=== PATIENT | male | born 1930 | race Caucasian/White ===

== ENCOUNTER 2016-06-16 17:23 | Emergency (ER) | payer MEDICARE, BC ==
--- NOTE | 2016-06-16 18:43 | EDM.PDOC ---
ED HPI RENAL/ - General Chief Complaint: Genitourinary Problem Stated Complaint: Urinary burning, difficult passing Time Seen by Provider: 06/16/16 18:34 Source of Information: Reports: Patient History Limitations: Reports: No limitations - History of Present Illness INITIAL COMMENTS - FREE TEXT/NARRATIVE: The patient presents with complaint of dysuria that has worsened over the last 3 days. He has a history of BPH and had recently switched from terazosin to finasteride about 1 week ago and started having increased urinary retention and difficulty. He quit finasteride about 3 days ago as it "was not helping". He said he had plans to restart terazosin tonight. He denies fever, chills, bodyaches, confusion, disorientation, or other symptoms or complaints. - Related Data Allergies/ADRs: Allergies Allergy/AdvReac Type Severity Reaction Status Date / Time No Known Allergies Allergy Verified 02/12/16 15:16 Home Meds: Home Meds Albuterol Sulfate [Ventolin Hfa] 2 puff INH ASDIRECTED PRN 02/12/16 [History] Hydrochlorothiazide 1 tab PO DAILY 02/12/16 [History] LORazepam [LORazepam] 1 tab PO ASDIRECTED PRN 02/12/16 [History] Terazosin [Hytrin] 1 cap PO BEDTIME 02/12/16 [History] amLODIPine [Norvasc] 1 tab PO DAILY 02/12/16 [History] metroNIDAZOLE [Metrogel] 1 applic TOP BID PRN 02/12/16 [History] Acetaminophen 650 mg PO Q4HR PRN 06/16/16 [History] Aspirin 81 mg PO DAILY 06/16/16 [History] Ciprofloxacin [Ciprofloxacin HCl] 500 mg PO BID #10 tablet 06/16/16 [Rx] Metoprolol Tartrate [Lopressor] 12.5 mg PO BID 06/16/16 [History] Nitroglycerin [Nitrostat] 1 tab SL ASDIRECTED 06/16/16 [History] Ticagrelor [Brilinta] 90 mg PO BID 06/16/16 [History] Ubidecarenone [Co Q-10] 1 cap PO BEDTIME 06/16/16 [History] Past Medical History HEENT History: Reports: Impaired vision Cardiovascular History: Reports: High cholesterol, Hypertension, Stents Gastrointestinal History: Reports: GERD Genitourinary History: Reports: BPH Musculoskeletal History: Reports: Fracture Other Musculoskeletal History: Left arm fx in 1937 Psychiatric History: Reports: Anxiety Endocrine/Metabolic History: Reports: Other (see below) Other Endocrine/Metabolic History: Thyromegaly Oncologic (Cancer) History: Reports: Other (see below) Other Oncologic History: 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 - Past Surgical History HEENT Surgical History: Reports: Cataract surgery, Oral surgery, Tonsillectomy Cardiovascular Surgical History: Reports: Carotid stents GI Surgical History: Reports: Colonoscopy, EGD Musculoskeletal Surgical History: Reports: Other (see below) Other Musculoskeletal Surgeries/Procedures:: Knee surgery Social & Family History - Tobacco Use Smoking Status *Q: Unknown Ever Smoked ED ROS GENERAL - Review of Systems Review Of Systems: ROS reveals no pertinent complaints other than HPI. ED EXAM, RENAL/ - Physical Exam Exam: See Below Exam Limited By: No limitations General Appearance: alert, WD/WN, no apparent distress Eye Exam: bilateral eye: EOMI, normal fundi, normal inspection, PERRL Ears: normal external exam, normal canal, hearing grossly normal, normal TMs Nose: normal inspection, normal mucosa, no blood Throat/Mouth: Normal inspection, Normal lips, Normal teeth, Normal gums, Normal oropharynx, Normal voice, No airway compromise Head: atraumatic, normocephalic Neck: normal inspection, supple, non-tender, full range of motion, other (No nuchal rigidity.) Respiratory/Chest: no respiratory distress, lungs clear, normal breath sounds, no accessory muscle use, chest non-tender Cardiovascular: normal peripheral pulses, regular rate, rhythm, no edema, no gallop, no murmur, no rub GI/Abdominal: normal bowel sounds, soft, non tender, no organomegaly, no distention Back Exam: normal inspection, full range of motion. No: CVA tenderness (L), CVA tenderness (R), paraspinal tenderness, vertebral tenderness Extremities: normal inspection, normal range of motion, non-tender, no pedal edema, normal capillary refill. No: Elen's Sign Neurological: alert, oriented, CN II-XII intact, normal cognition, normal gait, normal reflexes, no motor/sensory deficits Psychiatric: normal affect, normal mood Skin Exam: Warm, Dry, Intact, Normal color, No rash Lymphatic: no adenopathy Course - Vital Signs Last Recorded V/S: Last Vital Signs Temp 36.9 C 06/16/16 17:24 Pulse 56 L 06/16/16 17:24 Resp 18 06/16/16 17:24 BP Pulse Ox 95 06/16/16 17:24 - Orders/Labs/Meds Orders: Active Orders 24 hr Category Date Time Status CULTURE URINE [RM] Stat Lab 06/16/16 17:39 Received Labs: Laboratory Tests 06/16/16 Range/Units 17:39 Specimen Type Urincc Urine Color Yellow Urine Appearance Clear Urine pH 6.5 (5.0-9.0) Ur Specific [place] 1.020 (1.005-1.030) Urine Protein Negative (NEGATIVE) mg/dL Urine Glucose (UA) Negative (NEGATIVE) mg/dL Urine Ketones Negative (NEGATIVE) mg/dL Urine Occult Blood Trace-intact H (NEGATIVE) Urine Nitrite Negative (NEGATIVE) Urine Bilirubin Negative (NEGATIVE) Urine Urobilinogen 2.0 H (0.2-1.0) E.U./dL Ur Leukocyte Esterase Negative (NEGATIVE) Urine RBC 0-5 /HPF Urine WBC 0-5 /HPF Ur Epithelial Cells Few /LPF Urine Bacteria Few (NONE TO FEW) /HPF Departure - Departure Time of Disposition: 18:38 Disposition: Home, Self-Care 01 Clinical Impression: Dysuria, Bacteriuria with pyuria BPH (benign prostatic hypertrophy) Qualifiers: Prostatic enlargement morphology: unspecified morphology Lower urinary tract symptom presence: symptoms present Qualified Code(s): N40.1 - Benign prostatic hyperplasia with lower urinary tract symptoms Prescriptions: Ciprofloxacin [Ciprofloxacin HCl] 500 mg PO BID #10 tablet Instructions: Urinary Tract Infection, Adult Referrals: Duc Callejas NP [Primary Care Provider] - Forms: ED Department Discharge Additional Instructions: 1. Urine culture sent. 2. Instructed to discontinue finasteride and restart terazosin as previously prescribed. 3. Prescription for Ciprofloxacin 500 mg PO BID, 5 days, 0 refills. 4. OTC acetaminophen 325-650 mg every 6 hours as needed for fever or discomfort. 5. Increase fluid intake. 6. Get plenty of rest. 7. Followup with PCP in 3-5 days or sooner if symptoms worsen. 8. Return to ER with fever > 101 F not responsive to acetaminophen or ibuprofen , inability to urinate, blood in urine, confusion or other mental status changes , or other emergent concerns. - My Orders Last 24 Hours: My Active Orders 06/16/16 17:39 CULTURE URINE [RM] Stat - Assessment/Plan Last 24 Hours: My Active Orders 06/16/16 17:39 CULTURE URINE [RM] Stat Assessment:: Bacteriuria with pyuria and dysuria Chronic BPH Plan: 1. Urine culture sent. 2. Instructed to discontinue finasteride and restart terazosin as previously prescribed. 3. Prescription for Ciprofloxacin 500 mg PO BID, 5 days, 0 refills. 4. OTC acetaminophen 325-650 mg every 6 hours as needed for fever or discomfort. 5. Increase fluid intake. 6. Get plenty of rest. 7. Followup with PCP in 3-5 days or sooner if symptoms worsen. 8. Return to ER with fever > 101 F not responsive to acetaminophen or ibuprofen , inability to urinate, blood in urine, confusion or other mental status changes , or other emergent concerns.
== END 2016-06-16 18:55 | disposition home or self-care (01) ==
LOC: LL.ED 17:23
DX: N40.1 Benign prostatic hyperplasia with lower urinary tract symptoms (principal); N39.0 Urinary tract infection, site not specified; I10 Essential (primary) hypertension; E78.00 Pure hypercholesterolemia, unspecified; K21.9 Gastro-esophageal reflux disease without esophagitis; F41.9 Anxiety disorder, unspecified; Z79.899 Other long term (current) drug therapy; Z98.49 Cataract extraction status, unspecified eye; Z79.82 Long term (current) use of aspirin
CPT/HCPCS: 81001; 87086; 99283

== ENCOUNTER 2017-11-22 11:55 | Emergency (ER) | payer MEDICARE, BC ==
[2017-11-22] MEDS ORDERED: Sodium Chloride 0.9% 10 ML Syringe FLUSH PRN (12:22)
--- NOTE | 2017-11-22 12:24 | EDM.PDOC ---
ED HPI GENERAL MEDICAL PROBLEM - General Chief Complaint: Cardiovascular Problem Stated Complaint: A-fib RVR Time Seen by Provider: 11/22/17 12:10 Source of Information: Reports: Patient History Limitations: Reports: No Limitations - History of Present Illness INITIAL COMMENTS - FREE TEXT/NARRATIVE: Patient referred to ER from clinic after he was noted to be in afib with RVR. Denies history of previous diagnosis of Afib. Does have history of CAD and had stents placed at [facility] around a year and a half ago. Came to clinic today because he felt "woozy". Complains of feeling low energy for "some time" Also complains of long standing nocturnal SOB sensation when laying in bed. Denies chest pain. No recent med changes or other health changes. Baseline sensation of SOB is unchanged today. No diaphoresis/other new pain/GI//HEENT/ Neuro changes. Denies vertigo when he feels woozy. - Related Data Allergies Allergy/AdvReac Type Severity Reaction Status Date / Time No Known Allergies Allergy Verified 11/22/17 12:08 Home Meds: Home Meds LORazepam 1 tab PO ASDIRECTED PRN 02/12/16 [History] amLODIPine [Norvasc] 5 mg PO DAILY 02/12/16 [History] Aspirin 81 mg PO DAILY 06/16/16 [History] Metoprolol Tartrate [Lopressor] 12.5 mg PO BID 06/16/16 [History] Nitroglycerin [Nitrostat] 1 tab SL ASDIRECTED 06/16/16 [History] Ubidecarenone [Co Q-10] 1 cap PO BEDTIME 06/16/16 [History] Albuterol [Proventil HFA] 200 puff INH TID PRN 11/22/17 [History] Albuterol [Ventolin HFA] 2 puff INH QID PRN 11/22/17 [History] Budesonide/Formoterol [Symbicort 160-4.5 MCG] 2 puff INH BID 11/22/17 [History] Furosemide 40 mg PO DAILY 11/22/17 [History] Rosuvastatin Calcium 10 mg PO BEDTIME 11/22/17 [History] Terazosin HCl [Terazosin] 10 mg PO BEDTIME 11/22/17 [History] Past Medical History HEENT History: Reports: Impaired Vision Cardiovascular History: Reports: High Cholesterol, Hypertension, Stents Gastrointestinal History: Reports: GERD Genitourinary History: Reports: BPH Musculoskeletal History: Reports: Fracture Other Musculoskeletal History: Left arm fx in 1937 Psychiatric History: Reports: Anxiety Endocrine/Metabolic History: Reports: Other (See Below) Other Endocrine/Metabolic History: Thyromegaly Oncologic (Cancer) History: Reports: Other (See Below) Other Oncologic History: 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 - Past Surgical History HEENT Surgical History: Reports: Cataract Surgery, Oral Surgery, Tonsillectomy Cardiovascular Surgical History: Reports: Carotid Stents Musculoskeletal Surgical History: Reports: Other (See Below) Social & Family History - Tobacco Use Smoking Status *Q: Light Tobacco Smoker Tobacco Use Within Last Twelve Months: Cigars ED ROS GENERAL - Review of Systems Review Of Systems: See Below Constitutional: Reports: Weakness, Fatigue. Denies: Fever, Chills, Night Sweats , Diaphoresis, Decreased Appetite, Weight Loss, Weight Gain HEENT: Reports: No Symptoms Respiratory: Reports: Shortness of Breath (chronic, unchanged). Denies: Wheezing, Pleuritic Chest Pain, Cough, Sputum, Hemoptysis Cardiovascular: Reports: Lightheadedness, Orthopnea. Denies: Chest Pain, Edema , Palpitations, Syncope Endocrine: Reports: No Symptoms GI/Abdominal: Reports: No Symptoms : Reports: No Symptoms Musculoskeletal: Reports: No Symptoms (no acute changes in baseline) Skin: Reports: No Symptoms Neurological: Reports: Dizziness. Denies: Confusion, Headache, Numbness, Paresthesia, Seizure, Syncope, Tremors, Trouble Speaking, Change in Speech Psychiatric: Reports: No Symptoms Hematologic/Lymphatic: Reports: No Symptoms ED EXAM, GENERAL - Physical Exam Exam: See Below Exam Limited By: No Limitations General Appearance: Alert, WD/WN, No Apparent Distress Eye Exam: Bilateral Eye: EOMI, PERRL Ears: Normal External Exam Nose: Normal Inspection Throat/Mouth: Normal Inspection, Normal Voice, No Airway Compromise Head: Atraumatic, Normocephalic Neck: Supple, Non-Tender, Full Range of Motion Respiratory/Chest: No Respiratory Distress, Lungs Clear, Normal Breath Sounds, No Accessory Muscle Use, Chest Non-Tender Cardiovascular: No Edema, No JVD, No Murmur, Tachycardia, Irregularly Irregular Peripheral Pulses: 2+: Radial (L), Radial (R), Dorsalis Pedis (L), Dorsalis Pedis (R) GI/Abdominal: Normal Bowel Sounds, Soft, Non-Tender, No Distention, No Abnormal Bruit (Male) Exam: Deferred Rectal (Males) Exam: Deferred Back Exam: No: CVA Tenderness (L), CVA Tenderness (R), Muscle Spasm Extremities: Normal Inspection, Normal Range of Motion, Non-Tender, No Pedal Edema, Normal Capillary Refill Neurological: Alert, Oriented, Normal Cognition, Normal Gait, No Motor/Sensory Deficits Psychiatric: Normal Affect, Normal Mood Skin Exam: Warm, Dry, Intact, Normal Color EKG INTERPRETATION EKG Date: 11/22/17 Time: 11:31 Rhythm: A-Fib Rate (Beats/Min): 110 Walker: Normal P-Wave: Absent QRS: Other (low voltage) ST-T: Normal QT: Normal Comparison: Change From Previous EKG (Previous EKG sinus rhythm) Course - Vital Signs Last Recorded V/S: Last Vital Signs Temp 36.6 C 11/22/17 12:00 Pulse 102 H 11/22/17 13:25 Resp 23 H 11/22/17 13:25 BP 112/72 11/22/17 13:25 Pulse Ox 94 L 11/22/17 13:25 Orthostatic Blood Pressure [ 100/59 Standing] Orthostatic Blood Pressure [ 108/74 Sitting] Orthostatic Blood Pressure [ 90/65 Supine] - Orders/Labs/Meds Orders: Active Orders 24 hr Category Date Time Status Orthostatic Vital Signs [RC] ASDIRECTED Care 11/22/17 13:06 Ordered Chest 2V [CR] Stat Exams 11/22/17 12:22 Taken Sodium Chloride 0.9% [Saline Flush] Med 11/22/17 12:22 Active 10 ml FLUSH ASDIRECTED PRN Saline Lock Insert [OM.PC] Routine Oth 11/22/17 12:22 Ordered Medication Orders Sodium Chloride (Saline Flush) 10 ml FLUSH ASDIRECTED PRN PRN Reason: Keep Vein Open Labs: Laboratory Tests 11/22/17 11/22/17 Range/Units 11:11 11:11 Magnesium 2.2 (1.8-2.4) mg/dL Creatine Kinase 63 (26-308) U/L Creatine Kinase Index 2.7 H (0.0-2.5) % CK-MB (CK-2) 1.70 (0.00-3.60) ng/mL Troponin I 0.029 (0.000-0.056) ng/mL Meds: Medications Generic Name Dose Route Start Last Admin Trade Name Alfreditoq PRN Reason Stop Dose Admin Sodium Chloride 10 ml 11/22/17 12:22 Saline Flush FLUSH ASDIRECTED PRN Keep Vein Open - Radiology Interpretation Free Text/Narrative:: Chest xray showed no acute changes. - Re-Assessments/Exams Free Text/Narrative Re-Assessment/Exam: 11/22/17 13:56 Patient's rate improved shortly after coming to ER. Orthostatics: lying down 90/65 with pulse 100 sitting 108/74 pulse 108/74 standing 100/59 pulse 125 CBC, troponin, CKMB, Mg unremarkable. Glucose 155 Albumin mildly decreased. BUN/Cr mildly increased. Patient felt better once his pulse improved and stayed around 100 when laying down. Uncertain as to how long patient has been in Afib. Anticoagulation/ cardioversion need to be considered. Call placed to [facility] and patient discussed with hospitalist. Transfer for further cardiac workup and treatment of Afib recommended. Patient accepted by . Departure - Departure Time of Disposition: 14:03 Disposition: DC/Tfer to Acute Hospital 02 Reason for Transfer *Q: Other Condition: Good Clinical Impression: New onset a-fib Referrals: Kenneth Taylor MD [Primary Care Provider] - Forms: ED Department Discharge - My Orders Last 24 Hours: My Active Orders 11/22/17 12:22 Chest 2V [CR] Stat Sodium Chloride 0.9% [Saline Flush] 10 ml FLUSH ASDIRECTED PRN Saline Lock Insert [OM.PC] Routine 11/22/17 13:06 Orthostatic Vital Signs [RC] ASDIRECTED - Assessment/Plan Last 24 Hours: My Active Orders 11/22/17 12:22 Chest 2V [CR] Stat Sodium Chloride 0.9% [Saline Flush] 10 ml FLUSH ASDIRECTED PRN Saline Lock Insert [OM.PC] Routine 11/22/17 13:06 Orthostatic Vital Signs [RC] ASDIRECTED
[2017-11-22 14:07] VITALS: BP 104/73
== END 2017-11-22 14:25 ==
LOC: LL.ED 11:55
DX: I48.91 Unspecified atrial fibrillation (principal); F17.290 Nicotine dependence, other tobacco product, uncomplicated; I10 Essential (primary) hypertension; E78.00 Pure hypercholesterolemia, unspecified; Z79.82 Long term (current) use of aspirin; Z79.899 Other long term (current) drug therapy
CPT/HCPCS: 36000; 36415; 71046; 82550; 82553; 83735; 84484; 99285

== ENCOUNTER 2018-04-21 10:27 | Observation (INO) | payer MEDICARE, BC ==
[2018-04-21] MEDS ORDERED: Sodium Chloride 0.9% 1,000 ML IV ONE ×2 (11:23→16:00)
[2018-04-21] MEDS ORDERED: Albuterol/Ipratropium 3.0-0.5 MG/3 ML Neb Soln NEB ONE (12:03)
[2018-04-21] MEDS ORDERED: Digoxin 500 MCG/2 ML Amp IVPUSH ONE (12:46)
--- NOTE | 2018-04-21 12:55 | EDM.PDOC ---
ED HPI GENERAL MEDICAL PROBLEM - General Chief Complaint: Cardiovascular Problem Stated Complaint: Low bp, recheck Time Seen by Provider: 04/21/18 11:09 Source of Information: Reports: Patient, Family History Limitations: Reports: No Limitations - History of Present Illness INITIAL COMMENTS - FREE TEXT/NARRATIVE: Patient comes to ER from [facility] complaining of feeling light headed and mildly SOB. Has felt this way before but has not had an episode since he had pacemaker implanted early last month (March) Took BP at home and noted it was lower than his usual "120s/80s" Denies medication changes. No pain complaints, including chest pain. Denies HEENT changes. Has mild SOB but denies cough/sputum/cold symptoms No GI changes. No diaphoresis. No changes. No acute musculoskeletal or Neuro changes Feels better when at rest no acute weight changes/worsening edema (has history of CHF) - Related Data Allergies Allergy/AdvReac Type Severity Reaction Status Date / Time No Known Allergies Allergy Verified 04/21/18 10:41 Home Meds: Home Meds LORazepam 1 tab PO ASDIRECTED PRN 02/12/16 [History] amLODIPine [Norvasc] 5 mg PO DAILY 02/12/16 [History] Aspirin 81 mg PO DAILY 06/16/16 [History] Metoprolol Tartrate [Lopressor] 12.5 mg PO BID 06/16/16 [History] Budesonide/Formoterol [Symbicort 160-4.5 MCG] 2 puff INH BID PRN 11/22/17 [ History] Furosemide 40 mg PO Q2D 11/22/17 [History] Rosuvastatin Calcium 10 mg PO BEDTIME 11/22/17 [History] Terazosin HCl [Terazosin] 10 mg PO BEDTIME 11/22/17 [History] Apixaban [Eliquis] 2.5 mg PO BID 04/21/18 [History] Past Medical History HEENT History: Reports: Impaired Vision Cardiovascular History: Reports: Arrhythmia, High Cholesterol, Hypertension, Pacemaker, Stents, Other (See Below) Gastrointestinal History: Reports: GERD Genitourinary History: Reports: BPH Musculoskeletal History: Reports: Fracture Other Musculoskeletal History: Left arm fx in 1937 Psychiatric History: Reports: Anxiety Endocrine/Metabolic History: Reports: Other (See Below) Other Endocrine/Metabolic History: Thyromegaly Oncologic (Cancer) History: Reports: Other (See Below) Other Oncologic History: 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 - Past Surgical History HEENT Surgical History: Reports: Cataract Surgery, Oral Surgery, Tonsillectomy Cardiovascular Surgical History: Reports: Carotid Stents Musculoskeletal Surgical History: Reports: Other (See Below) Social & Family History - Tobacco Use Smoking Status *Q: Light Tobacco Smoker Years of Tobacco use: 60 Packs/Tins Daily: 0.1 - Caffeine Use Caffeine Use: Reports: Coffee - Recreational Drug Use Recreational Drug Use: No ED ROS GENERAL - Review of Systems Review Of Systems: ROS reveals no pertinent complaints other than HPI. ED EXAM, GENERAL - Physical Exam Exam: See Below Exam Limited By: No Limitations General Appearance: Alert, WD/WN, No Apparent Distress Eye Exam: Bilateral Eye: EOMI, PERRL Ears: Normal External Exam Nose: No: Nasal Deformity, Nasal Swelling, Nasal Drainage Throat/Mouth: Normal Lips, Normal Voice, No Airway Compromise Head: Atraumatic, Normocephalic Neck: Supple Respiratory/Chest: No Respiratory Distress, No Accessory Muscle Use, Chest Non- Tender, Rhonchi (scattered rhonchi on left) Peripheral Pulses: 2+: Radial (L), Radial (R), Dorsalis Pedis (L), Dorsalis Pedis (R) GI/Abdominal: Normal Bowel Sounds, Soft, Non-Tender, No Distention (Male) Exam: Deferred Rectal (Males) Exam: Deferred Back Exam: No: CVA Tenderness (L), CVA Tenderness (R), Muscle Spasm Extremities: Normal Range of Motion, Non-Tender, No Pedal Edema, Normal Capillary Refill. No: Elen's Sign Neurological: Alert, Oriented, Normal Cognition, No Motor/Sensory Deficits Psychiatric: Normal Affect, Normal Mood Skin Exam: Warm, Dry, Intact, Normal Color EKG INTERPRETATION EKG Date: 04/21/18 Time: 10:32 Rhythm: A-Fib Rate (Beats/Min): 120 [place]: Normal P-Wave: Absent QRS: Normal ST-T: Normal QT: Normal Comparison: No Change (Previous EKG from Nov shows Afib with RVR) Course - Vital Signs Last Recorded V/S: Last Vital Signs Temp 36.2 C 04/21/18 10:30 Pulse 91 04/21/18 13:02 Resp 21 H 04/21/18 12:30 BP 92/78 04/21/18 12:30 Pulse Ox 97 04/21/18 12:30 - Orders/Labs/Meds Orders: Active Orders 24 hr Category Date Time Status Patient Status [ADT] Routine ADT 04/21/18 13:13 Active EKG Documentation Completion [RC] ASDIRECTED Care 04/21/18 11:09 Active EKG Documentation Completion [RC] ASDIRECTED Care 04/21/18 13:20 Active Height and Weight [RC] DAILY Care 04/21/18 13:13 Active Oxygen Therapy [RC] PRN Care 04/21/18 13:14 Active Pulse Oximetry [RC] CONTINUOUS Care 04/21/18 13:14 Active RT Aerosol Therapy [RC] ASDIRECTED Care 04/21/18 12:03 Ordered RT Aerosol Therapy [RC] ASDIRECTED Care 04/21/18 13:17 Active Telemetry Monitoring [Cardiac Monitoring] [RC] . Care 04/21/18 13:16 Active DIRECTED Up With Assistance [RC] ASDIRECTED Care 04/21/18 13:13 Active Vital Signs [RC] Q1HR Care 04/21/18 13:13 Active Heart Healthy Diet [DIET] Diet 04/21/18 Dinner Active Chest 2V [CR] Stat Exams 04/21/18 11:21 Ordered BASIC METABOLIC PANEL,BMP [CHEM] AM Lab 04/22/18 05:15 Ordered CBC WITH AUTO DIFF [HEME] AM Lab 04/22/18 05:15 Ordered TROPONIN I [CHEM] AM Lab 04/22/18 05:11 Ordered Albuterol/Ipratropium [DuoNeb 3.0-0.5 MG/3 ML] Med 04/21/18 16:00 Ordered 3 ml NEB Q8HRRT Apixaban [Eliquis] Med 04/21/18 18:00 Ordered 2.5 mg PO BID Aspirin Med 04/22/18 08:00 Ordered 81 mg PO DAILY Budesonide/Formoterol Med 04/21/18 13:15 Ordered 2 puff INH BID PRN Digoxin [Lanoxin] Med 04/22/18 08:00 Ordered 250 mcg IVPUSH DAILY Furosemide [Lasix] Med 04/21/18 13:15 Ordered 40 mg PO Q2D LORazepam [Ativan] Med 04/21/18 13:15 Ordered DOSE mg PO ASDIRECTED PRN Metoprolol Tartrate [Lopressor] Med 04/21/18 18:00 Ordered 12.5 mg PO BID Rosuvastatin [Crestor] Med 04/21/18 20:00 Ordered 10 mg PO BEDTIME Terazosin HCl [Terazosin] Med 04/21/18 20:00 Ordered 10 mg PO BEDTIME amLODIPine [Norvasc] Med 04/22/18 08:00 Ordered 5 mg PO DAILY EKG 12 Lead [EK] AM Ther 04/22/18 05:11 Ordered Medication Orders Albuterol/Ipratropium (Duoneb 3.0-0.5 Mg/3 Ml) 3 ml NEB Q8HRRT JANICE Amlodipine Besylate (Norvasc) 5 mg PO DAILY JANICE Apixaban (Eliquis) 2.5 mg PO BID JANICE Aspirin (Aspirin) 81 mg PO DAILY JANICE Digoxin (Lanoxin) 250 mcg IVPUSH DAILY JANICE Furosemide (Lasix) 40 mg PO Q2D JANICE Lorazepam (Ativan) mg PO ASDIRECTED PRN PRN Reason: Anxiety Metoprolol Tartrate (Lopressor) 12.5 mg PO BID JANICE Non-Formulary Medication (Budesonide/Formoterol) 2 puff INH BID PRN PRN Reason: Shortness of Breath Non-Formulary Medication (Terazosin Hcl [Terazosin]) 10 mg PO BEDTIME JANICE Rosuvastatin Calcium (Crestor) 10 mg PO BEDTIME [facility] Labs: Laboratory Tests 04/21/18 04/21/18 04/21/18 Range/Units 11:25 11:25 11:25 WBC 8.3 (4.0-10.2) K/uL RBC 5.47 H (4.33-5.41) M/uL Hgb 17.0 H (13.1-16.8) g/dL Hct 51.1 H (39.0-49.0) % MCV 93.4 (84.0-98.0) fL MCH 31.1 (28.2-33.3) pg MCHC 33.3 (31.7-36.0) g/dL RDW 13.6 (11.2-14.1) % Plt Count 150 (150-350) K/uL Neut % (Auto) 77.2 (45.0-80.0) % Lymph % (Auto) 14.0 (10.0-50.0) % [place] % (Auto) 8.0 (2.0-14.0) % Eos % (Auto) 0.6 (0.0-5.0) % Baso % (Auto) 0.2 (0.0-2.0) % Neut # (Auto) 6.41 (1.40-7.00) K/uL Lymph # (Auto) 1.16 (0.50-3.50) K/uL [place] # (Auto) 0.66 (0.00-1.00) K/uL Eos # (Auto) 0.05 (0.00-0.50) K/uL Baso # (Auto) 0.02 (0.00-0.20) K/uL PT 10.7 (9.5-12.0) SEC INR 1.0 D-Dimer, Quantitative (0-400) ng/mL Sodium 143 (136-145) mmol/L Potassium 3.9 (3.5-5.1) mmol/L Chloride 104 (98-107) mmol/L Carbon Dioxide 33.9 H (21.0-32.0) mmol/L BUN 22 H (7-18) mg/dL Creatinine 1.41 H (0.51-1.17) mg/dL Est Cr Clr Drug Dosing 36.91 mL/min Estimated GFR (MDRD) 48 mL/min Glucose 147 H (74-106) mg/dL Lactic Acid (0.4-2.0) mmol/L Calcium 9.0 (8.5-10.1) mg/dL Magnesium 2.2 (1.8-2.4) mg/dL Total Bilirubin 1.0 (0.2-1.0) mg/dL AST 17 (15-37) U/L ALT 32 (12-78) U/L Alkaline Phosphatase 70 (46-116) IU/L Troponin I (0.000-0.056) ng/mL NT-Pro-B Natriuret Pep 3319 H (0-125) pg/mL Total Protein 6.7 (6.4-8.2) g/dL Albumin 3.4 (3.4-5.0) g/dL 04/21/18 04/21/18 04/21/18 Range/Units 11:25 11:25 12:04 WBC (4.0-10.2) K/uL RBC (4.33-5.41) M/uL Hgb (13.1-16.8) g/dL Hct (39.0-49.0) % MCV (84.0-98.0) fL MCH (28.2-33.3) pg MCHC (31.7-36.0) g/dL RDW (11.2-14.1) % Plt Count (150-350) K/uL Neut % (Auto) (45.0-80.0) % Lymph % (Auto) (10.0-50.0) % [place] % (Auto) (2.0-14.0) % Eos % (Auto) (0.0-5.0) % Baso % (Auto) (0.0-2.0) % Neut # (Auto) (1.40-7.00) K/uL Lymph # (Auto) (0.50-3.50) K/uL [place] # (Auto) (0.00-1.00) K/uL Eos # (Auto) (0.00-0.50) K/uL Baso # (Auto) (0.00-0.20) K/uL PT (9.5-12.0) SEC INR D-Dimer, Quantitative 501 H (0-400) ng/mL Sodium (136-145) mmol/L Potassium (3.5-5.1) mmol/L Chloride (98-107) mmol/L Carbon Dioxide (21.0-32.0) mmol/L BUN (7-18) mg/dL Creatinine (0.51-1.17) mg/dL Est Cr Clr Drug Dosing mL/min Estimated GFR (MDRD) mL/min Glucose (74-106) mg/dL Lactic Acid 1.8 (0.4-2.0) mmol/L Calcium (8.5-10.1) mg/dL Magnesium (1.8-2.4) mg/dL Total Bilirubin (0.2-1.0) mg/dL AST (15-37) U/L ALT (12-78) U/L Alkaline Phosphatase (46-116) IU/L Troponin I 0.018 (0.000-0.056) ng/mL NT-Pro-B Natriuret Pep (0-125) pg/mL Total Protein (6.4-8.2) g/dL Albumin (3.4-5.0) g/dL Meds: Medications Generic Name Dose Route Start Last Admin Trade Name Alfreditoq PRN Reason Stop Dose Admin Albuterol/Ipratropium 3 ml 04/21/18 16:00 Duoneb 3.0-0.5 Mg/3 Ml NEB Q8HRRT JANICE Amlodipine Besylate 5 mg 04/22/18 08:00 Norvasc PO DAILY JANICE Apixaban 2.5 mg 04/21/18 18:00 Eliquis PO BID [facility] Aspirin 81 mg 04/22/18 08:00 Aspirin PO DAILY JANICE Digoxin 250 mcg 04/22/18 08:00 Lanoxin IVPUSH DAILY JANICE Furosemide 40 mg 04/21/18 13:15 Lasix PO Q2D JANICE Lorazepam mg 04/21/18 13:15 Ativan PO ASDIRECTED PRN Anxiety Metoprolol Tartrate 12.5 mg 04/21/18 18:00 Lopressor PO BID JANICE Non-Formulary Medication 2 puff 04/21/18 13:15 Budesonide/Formoterol INH BID PRN Shortness of Breath Non-Formulary Medication 10 mg 04/21/18 20:00 Terazosin Hcl [Terazosin] PO BEDTIME JANICE Rosuvastatin Calcium 10 mg 04/21/18 20:00 Crestor PO BEDTIME JANICE Discontinued Medications Generic Name Dose Route Start Last Admin Trade Name Alfreditoq PRN Reason Stop Dose Admin Albuterol/Ipratropium 3 ml 04/21/18 12:03 04/21/18 12:11 Duoneb 3.0-0.5 Mg/3 Ml NEB 04/21/18 12:04 3 ml ONETIME ONE Administration Digoxin 250 mcg 04/21/18 12:46 04/21/18 13:02 Lanoxin IVPUSH 04/21/18 12:47 250 mcg ONETIME ONE Administration Sodium Chloride 1,000 mls @ 999 mls/hr 04/21/18 11:23 04/21/18 12:06 Normal Saline IV 04/21/18 12:23 999 mls/hr .BOLUS ONE Administration - Radiology Interpretation Free Text/Narrative:: Chest xray: No acute changes noted. Compared to previous films. No obvious new infiltrate/acute pulmonary edema/pneumo identified. - Re-Assessments/Exams Free Text/Narrative Re-Assessment/Exam: Labs performed. Patient placed on O2 via NC at 2L. O2 sats improved to upper 90s. BP remained low overall. 500ml bolus of NS given. Heart rated noted to vary between 80s to 120. Intermittent pacer spikes noted. Hgb 17. Ddimer mildly above normal at 501. Bun and Cr increased to 22 and 1.41 respectively. CO2 increased to 33.9 Glu 147 BNP over 3000 CBC/Chem/Trop/lactic acid unremarkable. No obvious medication change/infectious cause linked to today's changes. Patient has had similar episodes in past however. Does not appear to have acute CHF exacerbation. Call placed to [facility] and patient reviewed with . He suggested considering cardioversion, possibly amiodarone. Transfer to [facility] not suggested. cardizem not an option due to hypotension as noted above. At this point it was noted that patient's rate overall was improving. BP improving (still lower than normal for patient however). Patient stated that he felt better. Treatment options were discussed with patient, including possible cardioversion. Given the overall improvement noted, it was decided to admit the patient on observation/telemetry and give digoxin to see if patient will convert to sinus rhythm. Risks reviewed with patient and , both of whom were in agreement with the treatment plan. Departure - Departure Time of Disposition: 13:00 Disposition: Refer to Observation Condition: Good Clinical Impression: Afib Qualifiers: Atrial fibrillation type: unspecified Qualified Code(s): I48.91 - Unspecified atrial fibrillation Referrals: Pooja Frazier PA-C [Primary Care Provider] - Forms: ED Department Discharge - Problem List & Annotations (1) Afib SNOMED Code(s): 21919847 Code(s): I48.91 - UNSPECIFIED ATRIAL FIBRILLATION Status: Chronic Priority: High Current Visit: Yes Annotation/Comment:: Patient states that he usually eventually converts back to "normal" on own. Denies cardioversion history. Will place patient on telemetry and monitor response to Digoxin. May need to consider cardioversion/additional discussion with Cardiology at [facility]. Improved rate and BP at time of admission Qualifiers: Atrial fibrillation type: unspecified Qualified Code(s): I48.91 - Unspecified atrial fibrillation (2) Elevated d-dimer SNOMED Code(s): 846426517 Code(s): R79.89 - OTHER SPECIFIED ABNORMAL FINDINGS OF BLOOD CHEMISTRY Status: Acute Priority: Medium Current Visit: Yes Annotation/Comment:: Mildly above normal. Patient is on Eloquis. Consider imaging to rule out PE if symptoms continue. IV fluids given and should help improve Bun/Cr which is currently elevated. (3) CAD (coronary artery disease) SNOMED Code(s): 59708197 Code(s): I25.10 - ATHSCL HEART DISEASE OF [place] CORONARY ARTERY W/O ANG PCTRS Status: Chronic Priority: Low Current Visit: Yes Annotation/ Comment:: History of Stents Qualifiers: Coronary Disease-Associated Artery/Lesion type: unspecified vessel or lesion type Associated angina: angina presence unspecified (4) Hypertension SNOMED Code(s): 07344300 Code(s): I10 - ESSENTIAL (PRIMARY) HYPERTENSION Status: Chronic Priority : Low Current Visit: No Annotation/Comment:: Monitor for trends (5) CHF (congestive heart failure) SNOMED Code(s): 73329529 Code(s): I50.9 - HEART FAILURE, UNSPECIFIED Status: Chronic Priority: Medium Current Visit: Yes Annotation/Comment:: Elevated BNP at 3000, patient takes lasix every other day. No obvious acute exacerbation noted on chest xray or ascultation Qualifiers: Heart failure type: unspecified Heart failure chronicity: chronic Qualified Code(s): I50.9 - Heart failure, unspecified (6) BPH (benign prostatic hypertrophy) SNOMED Code(s): 668759488 Code(s): N40.0 - BENIGN PROSTATIC HYPERPLASIA WITHOUT LOWER URINRY TRACT SYMP Status: Chronic Priority: Low Current Visit: No Annotation/Comment: : Stable per patient Qualifiers: Lower urinary tract symptom presence: symptoms present Qualified Code(s): N40.1 - Benign prostatic hyperplasia with lower urinary tract symptoms (7) COPD (chronic obstructive pulmonary disease) SNOMED Code(s): 05337781 Code(s): J44.9 - CHRONIC OBSTRUCTIVE PULMONARY DISEASE, UNSPECIFIED Status : Acute Priority: Low Current Visit: Yes Annotation/Comment:: Stable per patient. Observe for changes Qualifiers: COPD type: unspecified COPD Qualified Code(s): J44.9 - Chronic obstructive pulmonary disease, unspecified (8) Dyslipidemia SNOMED Code(s): 086370907 Code(s): E78.5 - HYPERLIPIDEMIA, UNSPECIFIED Status: Chronic Priority: Low Current Visit: No Annotation/Comment:: Stable per patient (9) Renal insufficiency SNOMED Code(s): 736714230, 821882701 Code(s): N28.9 - DISORDER OF KIDNEY AND URETER, UNSPECIFIED Status: Chronic Priority: Low Current Visit: Yes Annotation/Comment:: Has had normal renal function tests until recently. Elevation in Bun/Cr has been noted on the last few visits. - Problem List Review Problem List Initiated/Reviewed/Updated: Yes - My Orders Last 24 Hours: My Active Orders 04/21/18 11:09 EKG Documentation Completion [RC] ASDIRECTED 04/21/18 11:21 Chest 2V [CR] Stat 04/21/18 12:03 RT Aerosol Therapy [RC] ASDIRECTED 04/21/18 13:13 Patient Status [ADT] Routine Height and Weight [RC] DAILY Up With Assistance [RC] ASDIRECTED Vital Signs [RC] Q1HR 04/21/18 13:14 Oxygen Therapy [RC] PRN Pulse Oximetry [RC] CONTINUOUS 04/21/18 13:15 Budesonide/Formoterol 2 puff INH BID PRN Furosemide [Lasix] 40 mg PO Q2D LORazepam [Ativan] DOSE mg PO ASDIRECTED PRN 04/21/18 13:16 Telemetry Monitoring [Cardiac Monitoring] [RC] . DIRECTED 04/21/18 13:17 RT Aerosol Therapy [RC] ASDIRECTED 04/21/18 13:20 EKG Documentation Completion [RC] ASDIRECTED 04/21/18 16:00 Albuterol/Ipratropium [DuoNeb 3.0-0.5 MG/3 ML] 3 ml NEB Q8HRRT 04/21/18 18:00 Apixaban [Eliquis] 2.5 mg PO BID Metoprolol Tartrate [Lopressor] 12.5 mg PO BID 04/21/18 20:00 Rosuvastatin [Crestor] 10 mg PO BEDTIME Terazosin HCl [Terazosin] 10 mg PO BEDTIME 04/21/18 Dinner Heart Healthy Diet [DIET] 04/22/18 05:11 TROPONIN I [CHEM] AM EKG 12 Lead [EK] AM 04/22/18 05:15 BASIC METABOLIC PANEL,BMP [CHEM] AM CBC WITH AUTO DIFF [HEME] AM 04/22/18 08:00 Aspirin 81 mg PO DAILY Digoxin [Lanoxin] 250 mcg IVPUSH DAILY amLODIPine [Norvasc] 5 mg PO DAILY - Assessment/Plan Admission H&P: Please use this note as an admission H&P Last 24 Hours: My Active Orders 04/21/18 11:09 EKG Documentation Completion [RC] ASDIRECTED 04/21/18 11:21 Chest 2V [CR] Stat 04/21/18 12:03 RT Aerosol Therapy [RC] ASDIRECTED 04/21/18 13:13 Patient Status [ADT] Routine Height and Weight [RC] DAILY Up With Assistance [RC] ASDIRECTED Vital Signs [RC] Q1HR 04/21/18 13:14 Oxygen Therapy [RC] PRN Pulse Oximetry [RC] CONTINUOUS 04/21/18 13:15 Budesonide/Formoterol 2 puff INH BID PRN Furosemide [Lasix] 40 mg PO Q2D LORazepam [Ativan] DOSE mg PO ASDIRECTED PRN 04/21/18 13:16 Telemetry Monitoring [Cardiac Monitoring] [RC] . DIRECTED 04/21/18 13:17 RT Aerosol Therapy [RC] ASDIRECTED 04/21/18 13:20 EKG Documentation Completion [RC] ASDIRECTED 04/21/18 16:00 Albuterol/Ipratropium [DuoNeb 3.0-0.5 MG/3 ML] 3 ml NEB Q8HRRT 04/21/18 18:00 Apixaban [Eliquis] 2.5 mg PO BID Metoprolol Tartrate [Lopressor] 12.5 mg PO BID 04/21/18 20:00 Rosuvastatin [Crestor] 10 mg PO BEDTIME Terazosin HCl [Terazosin] 10 mg PO BEDTIME 04/21/18 Dinner Heart Healthy Diet [DIET] 04/22/18 05:11 TROPONIN I [CHEM] AM EKG 12 Lead [EK] AM 04/22/18 05:15 BASIC METABOLIC PANEL,BMP [CHEM] AM CBC WITH AUTO DIFF [HEME] AM 04/22/18 08:00 Aspirin 81 mg PO DAILY Digoxin [Lanoxin] 250 mcg IVPUSH DAILY amLODIPine [Norvasc] 5 mg PO DAILY Assessment:: Afib, hypotension, SOB Plan: as above. Digoxin given in ER.
[2018-04-21] MEDS ORDERED: LORazepam 0.5 MG Tab PO PRN (13:15)
[2018-04-21] MEDS ORDERED: Non-Formulary Medication 1 Each (Budesonide/Formoterol 2 PUFF) INH PRN (13:15)
[2018-04-21] MEDS: Albuterol/Ipratropium 3.0-0.5 MG/3 ML Neb Soln NEB SCH ×2 (15:36→23:07)
[2018-04-21] MEDS ORDERED: Iopamidol 755 Mg/ML 100 ML Bottle IVPUSH ONE (15:37)
[2018-04-21] MEDS: Apixaban 2.5 MG Tab PO SCH (17:29)
[2018-04-21] MEDS ORDERED: Metoprolol Tartrate 25 MG Tab PO SCH (18:00)
[2018-04-21] MEDS ORDERED: Digoxin 125 MCG Tab PO ONE (19:00)
[2018-04-21] MEDS ORDERED: Terazosin 5 MG Cap PO SCH (20:00)
[2018-04-21] MEDS ORDERED: Rosuvastatin 10 MG Tab PO SCH (20:00)
[2018-04-22 07:28] LABS: CHLORIDE,CL 107 mmol/L (98-107); SODIUM,NA 143 mmol/L (136-145)
[2018-04-22] MEDS: Apixaban 2.5 MG Tab PO SCH (07:37)
[2018-04-22] MEDS: Albuterol/Ipratropium 3.0-0.5 MG/3 ML Neb Soln NEB SCH ×2 (07:37→15:11)
[2018-04-22] MEDS ORDERED: Aspirin 81 MG Tab.Chew PO SCH (08:00)
[2018-04-22] MEDS ORDERED: Metoprolol Tartrate 25 MG Tab PO SCH (08:00)
[2018-04-22] MEDS ORDERED: amLODIPine 5 MG Tab PO SCH (08:00)
[2018-04-22] MEDS ORDERED: Digoxin 500 MCG/2 ML Amp IVPUSH SCH (08:00)
[2018-04-22 11:23] VITALS: BP 119/72
[2018-04-22] MEDS ORDERED: Furosemide 40 MG Tab PO SCH (12:00)
--- NOTE | 2018-04-22 12:37 | PCM.DCSUM1 ---
Discharge Summary - Hospital Course Brief History: Admitted for observation due to Afib. Noted to have hypotension and mild hypoxia with activity Diagnosis: Stroke: No - Discharge Data Discharge Date: 04/22/18 Discharge Disposition: DC/Tfer to Acute Hospital 02 Condition: Good - Discharge Diagnosis/Problem(s) (1) Afib SNOMED Code(s): 34944487 ICD Code: I48.91 - UNSPECIFIED ATRIAL FIBRILLATION Status: Chronic Priority: High Current Visit: Yes Problem Details: Patient states that he usually eventually converts back to "normal" on own. Observed overnight. Digoxin given. Afib continues. Vital signs stable, rate improved. Call placed to [facility] and transfer arranged with for patient to have elective cardioversion. Qualifiers: Atrial fibrillation type: unspecified Qualified Code(s): I48.91 - Unspecified atrial fibrillation (2) Elevated d-dimer SNOMED Code(s): 868129261 ICD Code: R79.89 - OTHER SPECIFIED ABNORMAL FINDINGS OF BLOOD CHEMISTRY Status: Acute Priority: Medium Current Visit: Yes Problem Details: Mildly above normal. Patient is on Eloquis. Negative P.E. study yesterday. (3) CAD (coronary artery disease) SNOMED Code(s): 33920016 ICD Code: I25.10 - ATHSCL HEART DISEASE OF [place] CORONARY ARTERY W/O ANG PCTRS Status: Chronic Priority: Low Current Visit: Yes Problem Details: History of Stents Qualifiers: Coronary Disease-Associated Artery/Lesion type: unspecified vessel or lesion type Associated angina: angina presence unspecified (4) Hypertension SNOMED Code(s): 95130603 ICD Code: I10 - ESSENTIAL (PRIMARY) HYPERTENSION Status: Chronic Priority : Low Current Visit: No Problem Details: Initially hypotensive when presented to ER. BPs improved after admission and have remained stable. Last dose of Metoprolol held. (5) CHF (congestive heart failure) SNOMED Code(s): 80397152 ICD Code: I50.9 - HEART FAILURE, UNSPECIFIED Status: Chronic Priority: Medium Current Visit: Yes Problem Details: Elevated BNP at 3000, patient takes lasix every other day. No obvious acute exacerbation noted on chest xray or ascultation. Received a total of 2L NS since admission. Patient is up 3 pounds today. Lungs continue to be clear. Lasix dose held due to planned transfer to [facility]. Qualifiers: Heart failure type: unspecified Heart failure chronicity: chronic Qualified Code(s): I50.9 - Heart failure, unspecified (6) BPH (benign prostatic hypertrophy) SNOMED Code(s): 698341986 ICD Code: N40.0 - BENIGN PROSTATIC HYPERPLASIA WITHOUT LOWER URINRY TRACT SYMP Status: Chronic Priority: Low Current Visit: No Problem Details: Stable per patient Qualifiers: Lower urinary tract symptom presence: symptoms present Qualified Code(s): N40.1 - Benign prostatic hyperplasia with lower urinary tract symptoms (7) COPD (chronic obstructive pulmonary disease) SNOMED Code(s): 80868852 ICD Code: J44.9 - CHRONIC OBSTRUCTIVE PULMONARY DISEASE, UNSPECIFIED Status : Acute Priority: Low Current Visit: Yes Problem Details: Stable per patient. Observe for changes Qualifiers: COPD type: unspecified COPD Qualified Code(s): J44.9 - Chronic obstructive pulmonary disease, unspecified (8) Dyslipidemia SNOMED Code(s): 605884765 ICD Code: E78.5 - HYPERLIPIDEMIA, UNSPECIFIED Status: Chronic Priority: Low Current Visit: No Problem Details: Stable per patient (9) Renal insufficiency SNOMED Code(s): 093816782, 294501312 ICD Code: N28.9 - DISORDER OF KIDNEY AND URETER, UNSPECIFIED Status: Chronic Priority: Low Current Visit: Yes Problem Details: Has had normal renal function tests until recently. Elevation in Bun/Cr has been noted on the last few visits. Normalized today after IV fluids. - Patient Summary/Data Complications: none Hospital Course: Patient received supplemental O2. Oxygen sats high 90s. Afib persisted but rate improved to 80s/90s. BP also improved. Troponins negative. Patient continued to deny chest pain and overall felt well. Mildly SOB with activity. No acute ST changes suggestive of ischemia noted on EKGs. Received several doses of digoxin. Afib persisted. Arrangements made to transfer patient to [facility] in [place] for elective cardioversion as those are not usually performed at this facility. Dr.Cumar jessica WOODS. - Discharge Plan *PRESCRIPTION DRUG MONITORING PROGRAM REVIEWED*: Not Applicable *COPY OF PRESCRIPTION DRUG MONITORING REPORT IN PATIENT ANJALI: Not Applicable Home Medications: Home Meds LORazepam 1 tab PO ASDIRECTED PRN 02/12/16 [History] amLODIPine [Norvasc] 5 mg PO DAILY 02/12/16 [History] Aspirin 81 mg PO DAILY 06/16/16 [History] Metoprolol Tartrate [Lopressor] 12.5 mg PO BID 06/16/16 [History] Budesonide/Formoterol [Symbicort 160-4.5 MCG] 2 puff INH BID PRN 11/22/17 [ History] Furosemide 40 mg PO Q2D 11/22/17 [History] Rosuvastatin Calcium 10 mg PO BEDTIME 11/22/17 [History] Terazosin HCl [Terazosin] 10 mg PO BEDTIME 11/22/17 [History] Apixaban [Eliquis] 2.5 mg PO BID 04/21/18 [History] Patient Handouts: Hypotension, [id number], Digoxin injection, Albuterol; Ipratropium solution for inhalation, Atrial Fibrillation, [id number] Forms: ED Department Discharge Referrals: Pooja Frazier PA-C [Primary Care Provider] - - Discharge Summary/Plan Comment DC Time >30 min.: No - General Info Date of Service: 04/22/18 Admission Dx/Problem (Free Text: Afib. Originally complaining of mild SOB/not feeling like usual self when presented to ER. Subjective Update: Feels good/like usual self when not actively engaging in activity. Mild SOB when walking for any prolonged time. Functional Status: Reports: Pain Controlled, Tolerating Diet, Ambulating, Urinating. Denies: New Symptoms - Review of Systems General: Reports: No Symptoms HEENT: Reports: Glasses Pulmonary: Reports: Shortness of Breath (with activity). Denies: Pleuritic Chest Pain, Cough, Sputum, Hemoptysis, Wheezing Cardiovascular: Reports: Dyspnea on Exertion. Denies: Chest Pain, Palpitations , Orthopnea, Edema, Lightheadedness Gastrointestinal: Reports: No Symptoms Genitourinary: Reports: No Symptoms Musculoskeletal: Reports: No Symptoms Skin: Reports: No Symptoms Neurological: Reports: No Symptoms Psychiatric: Reports: No Symptoms - Patient Data Vitals - Most Recent: Last Vital Signs Temp 36.7 C 04/22/18 11:22 Pulse 72 04/22/18 11:22 Resp 17 04/22/18 11:22 BP 119/72 04/22/18 11:22 Pulse Ox 97 04/22/18 11:22 Weight - Most Recent: 92.351 kg I&O - Last 24 hours: Intake & Output 04/21/18 04/22/18 04/22/18 22:59 06:59 14:59 Intake Total 1225 1153 600 Output Total 500 Balance 1225 653 600 Lab Results - Last 24 hrs: Laboratory Results - last 24 hr 04/21/18 04/22/18 04/22/18 Range/Units 11:25 06:50 06:50 WBC 6.8 (4.0-10.2) K/uL RBC 4.91 (4.33-5.41) M/uL Hgb 15.2 D (13.1-16.8) g/dL Hct 46.1 (39.0-49.0) % MCV 93.9 (84.0-98.0) fL MCH 31.0 (28.2-33.3) pg MCHC 33.0 (31.7-36.0) g/dL RDW 13.8 (11.2-14.1) % Plt Count 137 L (150-350) K/uL Neut % (Auto) 66.1 (45.0-80.0) % Lymph % (Auto) 21.0 (10.0-50.0) % [place] % (Auto) 10.0 (2.0-14.0) % Eos % (Auto) 2.8 (0.0-5.0) % Baso % (Auto) 0.1 (0.0-2.0) % Neut # (Auto) 4.49 (1.40-7.00) K/uL Lymph # (Auto) 1.43 (0.50-3.50) K/uL [place] # (Auto) 0.68 (0.00-1.00) K/uL Eos # (Auto) 0.19 (0.00-0.50) K/uL Baso # (Auto) 0.01 (0.00-0.20) K/uL Sodium 143 (136-145) mmol/L Potassium 3.7 (3.5-5.1) mmol/L Chloride 107 (98-107) mmol/L Carbon Dioxide 32.8 H (21.0-32.0) mmol/L BUN 21 H (7-18) mg/dL Creatinine 1.15 (0.51-1.17) mg/dL Est Cr Clr Drug Dosing 45.10 mL/min Estimated GFR (MDRD) > 60 mL/min Glucose 93 (74-106) mg/dL Calcium 8.1 L (8.5-10.1) mg/dL Troponin I 0.018 0.028 (0.000-0.056) ng/mL Med Orders - Current: Current Medications Albuterol/Ipratropium (Duoneb 3.0-0.5 Mg/3 Ml) 3 ml NEB Q8HRRT [facility] Last Admin: 04/22/18 07:37 Dose: 3 ml Amlodipine Besylate (Norvasc) 5 mg PO DAILY [facility] Last Admin: 04/22/18 07:38 Dose: 5 mg Apixaban (Eliquis) 2.5 mg PO BID [facility] Last Admin: 04/22/18 07:37 Dose: 2.5 mg Aspirin (Aspirin) 81 mg PO DAILY [facility] Last Admin: 04/22/18 07:37 Dose: 81 mg Digoxin (Lanoxin) 250 mcg IVPUSH DAILY [facility] Last Admin: 04/22/18 07:38 Dose: 250 mcg Furosemide (Lasix) 40 mg PO Q2D [facility] Lorazepam (Ativan) 0.5 mg PO ASDIRECTED PRN PRN Reason: Anxiety Metoprolol Tartrate (Lopressor) 12.5 mg PO BID [facility] Last Admin: 04/22/18 07:38 Dose: 12.5 mg Rosuvastatin Calcium (Crestor) 10 mg PO BEDTIME [facility] Last Admin: 04/21/18 19:59 Dose: 10 mg Terazosin HCl (Hytrin) 10 mg PO BEDTIME [facility] Last Admin: 04/21/18 19:59 Dose: 10 mg Discontinued Medications Albuterol/Ipratropium (Duoneb 3.0-0.5 Mg/3 Ml) 3 ml NEB ONETIME ONE Stop: 04/21/18 12:04 Last Admin: 04/21/18 12:11 Dose: 3 ml Digoxin (Lanoxin) 250 mcg IVPUSH ONETIME ONE Stop: 04/21/18 12:47 Last Admin: 04/21/18 13:02 Dose: 250 mcg Digoxin (Lanoxin) 125 mcg PO ONETIME ONE Stop: 04/21/18 19:01 Last Admin: 04/21/18 19:59 Dose: 125 mcg Sodium Chloride (Normal Saline) 1,000 mls @ 999 mls/hr IV .BOLUS ONE Stop: 04/21/18 12:23 Last Admin: 04/21/18 12:06 Dose: 999 mls/hr Sodium Chloride (Normal Saline) 1,000 mls @ 125 mls/hr IV .BOLUS ONE Stop: 04/21/18 23:59 Last Admin: 04/21/18 17:29 Dose: 125 mls/hr Iopamidol (Isovue-370 (76%)) 100 ml IVPUSH ONETIME ONE Stop: 04/21/18 15:38 Last Admin: 04/22/18 10:00 Dose: Not Given Metoprolol Tartrate (Lopressor) 12.5 mg PO BID JANICE Non-Formulary Medication (Budesonide/Formoterol) 2 puff INH BID PRN PRN Reason: Shortness of Breath - Exam Quality Assessment: Reports: Supplemental Oxygen, DVT Prophylaxis (Eloquis) General: Reports: Alert, Oriented, Cooperative, No Acute Distress HEENT: Reports: Pupils Equal, Pupils Reactive, EOMI, Mucous Membr. Moist/[place] Neck: Reports: Supple Lungs: Reports: Clear to Auscultation, Normal Respiratory Effort Cardiovascular: Reports: No Murmurs, Irregular Rhythm GI/Abdominal Exam: Normal Bowel Sounds, Soft, Non-Tender (Male) Exam: Deferred Rectal (Males) Exam: Deferred Back Exam: Denies: Muscle Spasm, Paraspinal Tenderness, Vertebral Tenderness Extremities: Normal Inspection, Normal Range of Motion, Non-Tender, Normal Capillary Refill. No: Elen's Sign, Increased Warmth, Mottled, Pallor, Redness Skin: Reports: Warm, Dry, Intact Neurological: Reports: No New Focal Deficit Psy/Mental Status: Reports: Alert, Normal Affect, Normal Mood EKG INTERPRETATION EKG Date: 04/22/18 Time: 09:42 Rhythm: A-Fib Rate (Beats/Min): 72 [place]: Normal P-Wave: Absent QRS: Normal ST-T: Other (No noted ST depression/elevation. Noted to have flipped Ts in ventricular leads today) QT: Normal Comparison: Change From Previous EKG (Slower rate today. Continues to have intermittent pacer spikes. Flipped Ts noted in ventricular leads today.)
== END 2018-04-22 16:05 ==
LOC: LL.ED 10:27 → LL.MS 12:47 → UNDOADMOB 12:47 → LL.MS 13:13
PROVIDERS: ADMIT Emergency Medicine; ATTEND Emergency Medicine
DX: I48.91 Unspecified atrial fibrillation (principal); I11.0 Hypertensive heart disease with heart failure; I50.9 Heart failure, unspecified; J44.9 Chronic obstructive pulmonary disease, unspecified; F17.200 Nicotine dependence, unspecified, uncomplicated; E78.00 Pure hypercholesterolemia, unspecified; K21.9 Gastro-esophageal reflux disease without esophagitis; F41.9 Anxiety disorder, unspecified; R79.89 Other specified abnormal findings of blood chemistry; I25.10 Atherosclerotic heart disease of native coronary artery without angina pectoris; N40.1 Benign prostatic hyperplasia with lower urinary tract symptoms; N28.9 Disorder of kidney and ureter, unspecified; Z79.82 Long term (current) use of aspirin; Z79.01 Long term (current) use of anticoagulants; Z79.899 Other long term (current) drug therapy; Z95.0 Presence of cardiac pacemaker
CPT/HCPCS: 36415; 71046; 71275; 80048; 80053; 83605; 83735; 83880; 84484; 85025; 85379; 85610; 93005; 93010; 94640; 96361; 96374; 96376; 99217; 99218; 99285; A9270-GY; G0378; J1160; J7030; J7620-GY; Q9967

== ENCOUNTER 2019-02-16 15:41 | Emergency (ER) | payer MEDICARE, BC ==
[2019-02-16] MEDS ORDERED: Sodium Chloride 0.9% 10 ML Syringe FLUSH PRN (15:46)
[2019-02-16] MEDS ORDERED: amLODIPine 5 MG Tab PO ONE (16:34)
[2019-02-16 16:39] LABS: CHLORIDE,CL 103 mmol/L (98-107); SODIUM,NA 143 mmol/L (136-145)
--- NOTE | 2019-02-16 17:02 | EDM.PDOC ---
ED HPI GENERAL MEDICAL PROBLEM - General Chief Complaint: General Stated Complaint: High blood pressure Time Seen by Provider: 02/16/19 16:22 Source of Information: Reports: Patient History Limitations: Reports: No Limitations - History of Present Illness INITIAL COMMENTS - FREE TEXT/NARRATIVE: Patient comes to ER with complaint of high blood pressure. Does take BP at home. Noted it was more elevated than usual yesterday. However today at dentist systolic was over 200 and diastolic was "a lot". He cannot specifically recall. Usually runs 130s/80s per self report. Did forget to take his BP meds two days ago. He did take medication yesterday. Denies any headache/vision change/neuro changes or other acute complaints. He feels fine overall but admits to tweaking his chronic left sided chest/back pain due to lifting a few heavy objects earlier today. He reports no new chest pain. States that he tore muscles in upper/mid back on left in addition to muscles that wrap around left side "years ago" due to a water skiing accident. No other health changes. No recent med changes. Noted on review of previous chart entries that he was on Norvasc in addition to Metoprolol but for some reason he stopped taking the Norvasc around a year ago. - Related Data Allergies Allergy/AdvReac Type Severity Reaction Status Date / Time No Known Allergies Allergy Verified 02/16/19 15:43 Home Meds: Home Meds LORazepam 1 tab PO ASDIRECTED PRN 02/12/16 [History] Aspirin 81 mg PO DAILY 06/16/16 [History] Metoprolol Tartrate [Lopressor] 25 mg PO BID 06/16/16 [History] Budesonide/Formoterol [Symbicort 160-4.5 MCG] 2 puff INH BID PRN 11/22/17 [ History] Furosemide 40 mg PO Q2D 11/22/17 [History] Rosuvastatin Calcium 10 mg PO BEDTIME 11/22/17 [History] Terazosin HCl [Terazosin] 5 mg PO BEDTIME 11/22/17 [History] Apixaban [Eliquis] 5 mg PO BID 04/21/18 [History] Albuterol [Proventil Neb Soln] 0.63 mg NEB QID PRN 02/16/19 [History] Albuterol/Ipratropium [DuoNeb 3.0-0.5 MG/3 ML] 3 ml INH Q4H PRN 02/16/19 [ History] Fluticasone Propionate [Flonase] 1 spray NASBOTH DAILY 02/16/19 [History] Nitroglycerin 0.4 mg SL ASDIRECTED 02/16/19 [History] Past Medical History HEENT History: Reports: Impaired Vision Cardiovascular History: Reports: Arrhythmia, High Cholesterol, Hypertension, Pacemaker, Stents, Other (See Below) Gastrointestinal History: Reports: GERD Genitourinary History: Reports: BPH Musculoskeletal History: Reports: Fracture Other Musculoskeletal History: Left arm fx in 1937 Psychiatric History: Reports: Anxiety Endocrine/Metabolic History: Reports: Other (See Below) Other Endocrine/Metabolic History: Thyromegaly Oncologic (Cancer) History: Reports: Other (See Below) Other Oncologic History: 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 - Past Surgical History HEENT Surgical History: Reports: Cataract Surgery, Oral Surgery, Tonsillectomy Cardiovascular Surgical History: Reports: Carotid Stents Musculoskeletal Surgical History: Reports: Other (See Below) Social & Family History - Caffeine Use Caffeine Use: Reports: Coffee ED ROS GENERAL - Review of Systems Review Of Systems: See Below Constitutional: Reports: No Symptoms HEENT: Reports: No Symptoms, Glasses Respiratory: Reports: No Symptoms Cardiovascular: Reports: Other (has chronic left chest wall pain/left back pain as stated in HPI/worse with movement). Denies: Dyspnea on Exertion, Edema, Lightheadedness, Palpitations, Syncope GI/Abdominal: Reports: No Symptoms : Reports: Other (BPH). Denies: Flank Pain, Frequency, Hematuria, Pain, Urgency Musculoskeletal: Reports: Other (chronic left sided chest wall/left mid back pain as stated in HPI) Skin: Reports: No Symptoms Neurological: Reports: No Symptoms. Denies: Confusion, Dizziness, Headache, Numbness, Paresthesia, Seizure, Syncope, Tingling, Trouble Speaking, Change in Speech, Gait Disturbance Psychiatric: Reports: No Symptoms ED EXAM, GENERAL - Physical Exam Exam: See Below Exam Limited By: No Limitations General Appearance: Alert, WD/WN, No Apparent Distress Eye Exam: Bilateral Eye: EOMI, PERRL Ears: Normal External Exam Nose: No: Nasal Deformity, Nasal Swelling, Nasal Drainage Throat/Mouth: Normal Lips, Normal Voice, No Airway Compromise Head: Atraumatic, Normocephalic Neck: Normal Inspection, Supple, Non-Tender, Full Range of Motion Respiratory/Chest: No Respiratory Distress, No Accessory Muscle Use, Rales ( faint crackles at bases), Other (mild tenderness with palpation over serratus muscle and left mid back soft tissue). No: Rhonchi, Wheezing, Stridor Cardiovascular: Regular Rate, Rhythm, No Murmur GI/Abdominal: Normal Bowel Sounds, Soft, Non-Tender (Male) Exam: Deferred Rectal (Males) Exam: Deferred Back Exam: No: Muscle Spasm, Vertebral Tenderness Extremities: Normal Range of Motion, Normal Capillary Refill Neurological: Alert, Oriented, Normal Cognition, Normal Gait, No Motor/Sensory Deficits Psychiatric: Normal Affect, Normal Mood Skin Exam: Warm, Dry, Intact EKG INTERPRETATION EKG Date: 02/16/19 Time: 15:42 Rhythm: Other (pacemaker) Rate (Beats/Min): 88 [place]: Normal P-Wave: Absent QRS: Normal ST-T: Other (no obvious ischemic changes noted) QT: Normal Comparison: No Change Course - Vital Signs Last Recorded V/S: Last Vital Signs Temp Pulse 79 02/16/19 18:34 Resp BP 172/107 H 02/16/19 18:34 Pulse Ox - Orders/Labs/Meds Orders: Active Orders 24 hr Category Date Time Status Cardiac Monitoring [RC] . DIRECTED Care 02/16/19 15:47 Inactive EKG Documentation Completion [RC] ASDIRECTED Care 02/16/19 15:42 Active Peripheral IV Care [RC] . DIRECTED Care 02/16/19 15:46 Active Chest 2V [CR] Stat Exams 02/16/19 15:45 Taken Sodium Chloride 0.9% [Saline Flush] Med 02/16/19 15:46 Active 10 ml FLUSH ASDIRECTED PRN Peripheral IV Insertion Adult [OM.PC] Routine Oth 02/16/19 15:46 Ordered Medication Orders Sodium Chloride (Saline Flush) 10 ml FLUSH ASDIRECTED PRN PRN Reason: Keep Vein Open Labs: Laboratory Tests 02/16/19 02/16/19 Range/Units 15:53 15:53 WBC 5.0 (4.0-10.2) K/uL RBC 5.36 (4.33-5.41) M/uL Hgb 16.5 D (13.1-16.8) g/dL Hct 51.0 H (39.0-49.0) % MCV 95.1 (84.0-98.0) fL MCH 30.8 (28.2-33.3) pg MCHC 32.4 (31.7-36.0) g/dL RDW 13.2 (11.2-14.1) % Plt Count 156 (150-350) K/uL Neut % (Auto) 57.5 (45.0-80.0) % Lymph % (Auto) 29.0 (10.0-50.0) % [place] % (Auto) 11.5 (2.0-14.0) % Eos % (Auto) 1.6 (0.0-5.0) % Baso % (Auto) 0.4 (0.0-2.0) % Neut # (Auto) 2.86 (1.40-7.00) K/uL Lymph # (Auto) 1.44 (0.50-3.50) K/uL [place] # (Auto) 0.57 (0.00-1.00) K/uL Eos # (Auto) 0.08 (0.00-0.50) K/uL Baso # (Auto) 0.02 (0.00-0.20) K/uL Sodium 143 (136-145) mmol/L Potassium 4.2 (3.5-5.1) mmol/L Chloride 103 (98-107) mmol/L Carbon Dioxide 35.0 H (21.0-32.0) mmol/L BUN 22 H (7-18) mg/dL Creatinine 1.07 (0.51-1.17) mg/dL Est Cr Clr Drug Dosing 47.72 mL/min Estimated GFR (MDRD) > 60 mL/min Glucose 73 L (74-106) mg/dL Calcium 8.8 (8.5-10.1) mg/dL Magnesium 2.2 (1.8-2.4) mg/dL Total Bilirubin 1.1 H (0.2-1.0) mg/dL AST 18 (15-37) U/L ALT 25 (12-78) U/L Alkaline Phosphatase 74 (46-116) IU/L Total Protein 7.4 (6.4-8.2) g/dL Albumin 3.7 (3.4-5.0) g/dL Meds: Medications Generic Name Dose Route Start Last Admin Trade Name Freq PRN Reason Stop Dose Admin Sodium Chloride 10 ml 02/16/19 15:46 Saline Flush FLUSH ASDIRECTED PRN Keep Vein Open Discontinued Medications Generic Name Dose Route Start Last Admin Trade Name Freq PRN Reason Stop Dose Admin Amlodipine Besylate 5 mg 02/16/19 16:34 02/16/19 17:18 Norvasc PO 02/16/19 16:35 5 mg ONETIME ONE Administration Metoprolol Tartrate 25 mg 02/16/19 18:20 02/16/19 18:34 Lopressor PO 02/16/19 18:21 25 mg ONETIME ONE Administration - Radiology Interpretation Free Text/Narrative:: Chest xray did not show focal acute changes/pneumo/infiltrate - Re-Assessments/Exams Free Text/Narrative Re-Assessment/Exam: WBC unremarkable. Co2 mildly above normal range. Patient with history of COPD. Chem overall unremarkable. 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 No acute ST changes noted on EKG. Suspect BP elevation related to patient not taking his meds on Saturday. Norvasc given in ER, followed by Metoprolol. Patient observed. BP improved over time. OK to discharge home. Elevation may be related to patient not taking meds two days ago. He is to continue to monitor his BPs daily and should also follow up at his clinic tomorrow or Saturday to have BP rechecked. May need adjustment of medications if elevation persists. Recommend Public Health involvement with monitoring patient's meds. Departure - Departure Time of Disposition: 19:21 Disposition: Home, Self-Care 01 Condition: Good Clinical Impression: Hypertension Qualifiers: Hypertension type: essential hypertension Qualified Code(s): I10 - Essential ( primary) hypertension - Discharge Information *PRESCRIPTION DRUG MONITORING PROGRAM REVIEWED*: Not Applicable *COPY OF PRESCRIPTION DRUG MONITORING REPORT IN PATIENT ANJALI: Not Applicable Referrals: Liza Negron NP [Primary Care Provider] - Forms: ED Department Discharge Additional Instructions: Continue to monitor your blood pressure regularly. Recommend morning, afternoon , and before bed for one week and keep written diary. Follow up tomorrow or Saturday in clinic to have BP rechecked and meds adjusted if needed. Establish Public Health at your follow up provider visit. Follow up otherwise as needed if you have additional problems. Sepsis Event Note - Evaluation Sepsis Screening Result: No Definite Risk - Focused Exam Vital Signs: Vital Signs Pulse BP 02/16/19 18:34 79 172/107 H 02/16/19 17:18 147/85 H Date Exam was Performed: 02/16/19 Time Exam was Performed: 19:19 - My Orders Last 24 Hours: My Active Orders 02/16/19 15:42 EKG Documentation Completion [RC] ASDIRECTED 02/16/19 15:45 Chest 2V [CR] Stat 02/16/19 15:46 Peripheral IV Care [RC] . DIRECTED Sodium Chloride 0.9% [Saline Flush] 10 ml FLUSH ASDIRECTED PRN Peripheral IV Insertion Adult [OM.PC] Routine 02/16/19 15:47 Cardiac Monitoring [RC] . DIRECTED - Assessment/Plan Last 24 Hours: My Active Orders 02/16/19 15:42 EKG Documentation Completion [RC] ASDIRECTED 02/16/19 15:45 Chest 2V [CR] Stat 02/16/19 15:46 Peripheral IV Care [RC] . DIRECTED Sodium Chloride 0.9% [Saline Flush] 10 ml FLUSH ASDIRECTED PRN Peripheral IV Insertion Adult [OM.PC] Routine 02/16/19 15:47 Cardiac Monitoring [RC] . DIRECTED
[2019-02-16] MEDS ORDERED: Metoprolol Tartrate 25 MG Tab PO ONE (18:20)
[2019-02-16 23:24] VITALS: PULSE 60
[2019-02-16 23:26] VITALS: BP 149/89
== END 2019-02-16 19:45 | disposition home or self-care (01) ==
LOC: LL.ED 15:41
DX: I10 Essential (primary) hypertension (principal); E78.00 Pure hypercholesterolemia, unspecified; I49.9 Cardiac arrhythmia, unspecified; F41.9 Anxiety disorder, unspecified; Z79.01 Long term (current) use of anticoagulants; Z79.82 Long term (current) use of aspirin; Z79.899 Other long term (current) drug therapy; Z95.0 Presence of cardiac pacemaker; Z95.5 Presence of coronary angioplasty implant and graft
CPT/HCPCS: 36415; 71046; 80053; 83735; 85025; 93005; 99284-25; A9270-GY